=== PATIENT | female | born 1945 | race Caucasian/White ===

== ENCOUNTER → 2016-09-29 | Outpatient (CLI) | payer MEDICARE, BC ==
[~2016-09-29] MED LIST: ASPIRIN (CHILDR81 MG PO; ASPIRIN325 MG PO; COLACE100 MG PO; NORCO 5-325 MG1 TAB PO; PROTONIX40 MG PO; RYTHMOL150 MG PO; TENORMIN25 MG PO; VITAMIN D-32000 UNI1 PO; ZOCOR10 MG PO; ZYLOPRIM300 MG PO; [UNRECOGNIZED DRUG - OTHER] PO
== END ==
LOC: GBCOE 09-19 12:00
DX: Z12.31 Encounter for screening mammogram for malignant neoplasm of breast (principal)
CPT/HCPCS: G0202

== ENCOUNTER → 2016-10-13 | Outpatient (CLI) | payer MEDICARE, BC | LOC: LFPA 12:18 | DX: M1A.9XX0 Chronic gout, unspecified, without tophus (tophi) (principal); M81.0 Age-related osteoporosis without current pathological fracture ==